=== PATIENT | male | born 1985 | race Hispanic/Latino ===

== ENCOUNTER 2019-04-07 11:56 | Emergency (ER) | payer OTHER ==
[2019-04-07] MEDS ORDERED: KETOROLAC TROMETHAMINE 60 MG/2 ML VIAL ONE (12:06)
[2019-04-07] MEDS ORDERED: DIAZEPAM 5 MG TABLET ONE (12:06)
[2019-04-07] MEDS ORDERED: LIDOCAINE 5% TOPICAL PATCH TP ONE (12:06)
== END 2019-04-07 14:34 | disposition home or self-care (01) ==
LOC: EDH 11:56
DX: M54.16 Radiculopathy, lumbar region (principal)
CPT/HCPCS: 96372; 99283; J1885